=== PATIENT | male | born 1970 | race Caucasian/White ===

== ENCOUNTER 2017-07-16 08:11 | Day surgery (SDC) | payer BC ==
[~2017-07-16] VITALS: Ht 182.9 cm; Wt 154.2 kg
[~2017-07-16 08:11] MED LIST: BENADRYL ALLERG25 MG PO; CYMBALTA60 MG PO; GLUCOPHAGE XR,500 MG PO; GLUCOTROL XL5 MG PO; HYZAAR 100-21 TABLET PO; IMITREX100 MG PO; LIPITOR40 MG PO; LO-DOSE ASPIRIN81 M1 PO; MEN'S MULTI-VI1 EACH PO; NORVASC10 MG PO; VENTOLIN HFA18 GM IH; ZYRTEC10 M3 PO
[2017-07-16 09:09] VITALS: BP 136/81
[2017-07-16 12:55] VITALS: BP 108/72
[2017-07-16 14:21] VITALS: BP 151/83
== END 2017-07-16 14:22 | disposition home or self-care (01) ==
LOC: SDC 08:11
PROVIDERS: Urology
PROC: 0T7D8ZZ Dilation of Urethra, Via Natural or Artificial Opening Endoscopic (ICD-10-PCS; principal; 2017-07-16)
DX: N40.1 Benign prostatic hyperplasia with lower urinary tract symptoms (principal); N13.8 Other obstructive and reflux uropathy; R35.0 Frequency of micturition; R31.0 Gross hematuria; R94.31 Abnormal electrocardiogram [ECG] [EKG]; E11.9 Type 2 diabetes mellitus without complications; I10 Essential (primary) hypertension; E11.40 Type 2 diabetes mellitus with diabetic neuropathy, unspecified; M06.9 Rheumatoid arthritis, unspecified; I87.2 Venous insufficiency (chronic) (peripheral); G47.33 Obstructive sleep apnea (adult) (pediatric); E66.01 Morbid (severe) obesity due to excess calories; Z68.42 Body mass index [BMI] 45.0-49.9, adult; Z88.0 Allergy status to penicillin; Z79.82 Long term (current) use of aspirin; Z79.84 Long term (current) use of oral hypoglycemic drugs
CPT/HCPCS: 82948; 93005; J0330; J1580; J2250; J2405; J3010; J7050